=== PATIENT | male | born 1940 | race Caucasian/White ===

== ENCOUNTER 2017-07-22 06:24 | Inpatient (IN) | payer MEDICARE ==
[~2017-07-22] VITALS: Ht 182.9 cm; Wt 90.7 kg
[2017-07-22] VITALS (8 sets, daily range): BP systolic 104–198; BP diastolic 55–85
[~2017-07-22 06:24] MED LIST: ASPIRIN EC81 M1 PO; ATIVAN1 MG PO; AUGMENTIN 875875 MG PO; AVELOX 400 MG400 M1 PO; AVELOX 400 MG400 MG PO; B-12500 MC1 PO; COLACE100 MG PO; DUONEB 2.5-0.5 M3 ML INH; FOLIC ACID 1 MG1 MG PO; GLIPIZIDE ER10 MG PO; GLYBURIDE 2.52.5 M1 PO; HYTRIN 1 MG CAP1 MG PO; LOPRESSOR 50 MG50 M1 PO; LOPRESSOR25 PO; LOSARTAN POTASS25 MG PO; MIRALAX255 GM PO; MUCINEX TA600 MG/TA1 PO; OMEPRAZOLE40 MG PO; PRAVACHOL80 MG PO; PREDNISONE 10 M10 M1; PREDNISONE 10 M10 M1 PO; PREDNISONE 10 M10 MG PO; ZOLOFT 50 MG TA50 M1 PO
[2017-07-22] MEDS ORDERED: AZITHROMYCIN 2250 MG PO (06:27)
[2017-07-22] MEDS ORDERED: VITAMIN D1000 UNI1 PO (06:27)
[2017-07-22] MEDS ORDERED: TUMS PO (06:27)
[2017-07-22] MEDS ORDERED: FLOVENT HFA 4444 MCG INH (06:28)
[2017-07-22] MEDS ORDERED: FERROUS GLUCON324 M2 PO (06:28)
[2017-07-22] MEDS ORDERED: LEVALBUTER1.25 MG/0. INH (06:29)
[2017-07-22] MEDS ORDERED: CLARITIN10 MG PO (06:29)
[2017-07-22] MEDS ORDERED: LASIX 40 MG TAB40 M2 PO (06:29)
[2017-07-22] MEDS ORDERED: ONGLYZA2.5 MG PO (06:30)
[2017-07-22] MEDS ORDERED: COZAAR 25 MG TA25 M1 PO (06:31)
[2017-07-22] MEDS ORDERED: PULMICORT0.5 MG/22 INH (06:31)
[2017-07-22 07:07] LABS: HEMATOCRIT 23.6 % (42.0-52.0); HEMOGLOBIN 7.5 gm/dL (14.0-18.0); MCHC 31.7 g/dL (28.0-37.0); MCV 88.4 fL (80.0-100.0); MPV 8.8 fl. (7.2-11.1); NUCLEATED RBCS 0 /100WBC; PLATELET COUNT* 93 thou/uL (150-400); RBC 2.67 mil/uL (4.50-6.00); RDW-CV 14.7 % (10.5-14.5); WBC 8.3 thou/uL (4.0-11.0)
[2017-07-22 07:27] LABS: ALBUMIN 1.3 g/dL (3.4-5.0); ALKALINE PHOSPHATASE 33 U/L (46-116); APTT 41.8 Seconds (25.0-31.3); BUN 14 mg/dL (7-18); CHLORIDE 121 mmol/L (98-107); CREATININE 0.5 mg/dL (0.6-1.3); GLUCOSE 200 mg/dL (70-99); INR 1.5; NT-PRO BRAIN NAT PEPTIDE 91 pg/mL (<300); PROTIME 14.6 Seconds (9.20-11.50); SGOT 7 U/L (15-37); SGPT 6 U/L (30-65); SODIUM 150 mmol/L (136-145); TOTAL BILIRUBIN 0.4 mg/dL (<0.1-1.0); TOTAL PROTEIN 2.9 g/dL (6.4-8.2); TROPONIN-I LEVEL <0.06 ng/mL (<0.06)
[2017-07-22 07:34] LABS: ANION GAP 8 mmol/L (7-16); CO2 21 mmol/L (21-32)
[2017-07-22 07:36] LABS: CALCIUM < 5.0 mg/dL (8.5-10.1)
[2017-07-22 07:39] LABS: URINE BILIRUBIN NEGATIVE (Negative); URINE BLOOD 3+ (Negative); URINE CLARITY CLEAR; URINE COLOR YELLOW; URINE GLUCOSE-RANDOM 2+ (Negative); URINE KETONES TRACE (Negative); URINE LEUKOCYTES-REFLEX NEGATIVE (Negative); URINE NITRITE-REFLEX NEGATIVE (Negative); URINE PROTEIN 2+ (Negative); URINE SPECIFIC GRAVITY 1.025 (1.005-1.030); URINE UROBILINOGEN 0.2 E.U./dl (0.2-1.0)
[2017-07-22 07:40] LABS: ABSOLUTE EOSINOPHILS 0.1 thou/uL (0.0-0.7); ABSOLUTE LYMPHOCYTES 0.5 thou/uL (0.8-5.3); ABSOLUTE MONOCYTES 0.2 thou/uL (0.0-1.2); ABSOLUTE NEUTROPHILS 7.6 thou/uL (1.6-8.1); PLATELET ESTIMATE DECREASED
[2017-07-22 07:41] LABS: ANISOCYTOSIS 1+; POIKILOCYTOSIS 1+
[2017-07-22 07:56] LABS: SQUAMOUS 0-3 Few /LPF (0-3); URINE WBC-REFLEX 0-5 Rare /HPF (0-5)
[2017-07-22 07:57] LABS: BACTERIA-REFLEX 1-9 Few /HPF (None Seen); CRYSTALS None Seen /LPF (None Seen); FINE GRANULAR CASTS 0-3 Few /LPF (None Seen); HYALINE CASTS 4-10 Moderate /LPF (None Seen); MUCUS 0-3 Light strn/LPF (None Seen)
[2017-07-22 10:22] LABS: BE 5.5 mmol/L (-2 to +3); HCO3 33.3 mmol/L (22.0-26.0); pH 7.333 (7.340-7.450)
[2017-07-22 10:23] LABS: PCO2 64.1 mmHg (35.0-45.0); PO2 127.2 mmHg (75.0-100.0)
--- NOTE | 2017-07-22 10:30 | EKG ---
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 : 1940 Requested By: Carlton Sanchez Order Number: [id number] MD: Steven Sousa Measurements Intervals [place] Rate: 114 P: 71 NM: 145 QRS: 53 QRSD: 84 T: 78 QT: 357 QTc: 492 Interpretive Statements Sinus tachycardia Artifact v1-v3 Borderline prolonged QT interval Compared to ECG 01/01/2017 23:18:25 Artifact noted Electronically Signed On 07-22-2017 10:30:33 ELEMENTARY SCHOOL ART TEACHER by Steven Sousa [email or web address] <ELECTRONICALLY SIGNED> By: Steven Sousa MD, [facility] 07/22/17 1030 [id number] [id number] Steven Sousa MD, [facility] /EPI
[2017-07-22 14:12] LABS: MAGNESIUM 1.6 mg/dL (1.8-2.4); PHOSPHORUS* 1.4 mg/dL (2.5-4.9)
[2017-07-22 14:46] LABS: CALCIUM 6.4 mg/dL (8.5-10.1); CREATININE 1.1 mg/dL (0.6-1.3)
[2017-07-22 14:50] LABS: POTASSIUM 5.1 mmol/L (3.5-5.1)
[2017-07-22 16:19] LABS: BE 5.4 mmol/L (-2 to +3); HCO3 31.5 mmol/L (22.0-26.0); PO2 62.3 mmHg (75.0-100.0); pH 7.396 (7.340-7.450)
[2017-07-22 16:20] LABS: PCO2 52.5 mmHg (35.0-45.0)
[2017-07-22 20:04] LABS: MAGNESIUM 2.7 mg/dL (1.8-2.4); PHOSPHORUS* 1.7 mg/dL (2.5-4.9)
[2017-07-23] VITALS (18 sets, daily range): BP systolic 103–163; BP diastolic 55–86
[2017-07-23 06:32] LABS: ABSOLUTE LYMPHOCYTES 0.7 thou/uL (0.8-5.3); ABSOLUTE MONOCYTES 0.6 thou/uL (0.0-1.2); ABSOLUTE NEUTROPHILS 9.9 thou/uL (1.6-8.1); BASOPHILS 0.2 %; HEMATOCRIT 32.7 % (42.0-52.0); LYMPHOCYTES 6.6 %; MCHC 32.7 g/dL (28.0-37.0); MCV 85.8 fL (80.0-100.0); MONOCYTES 5.1 %; MPV 9.7 fl. (7.2-11.1); NUCLEATED RBCS 0 /100WBC; PLATELET COUNT* 116 thou/uL (150-400); POLYS 88.1 %; RBC 3.81 mil/uL (4.50-6.00); RDW-CV 14.3 % (10.5-14.5); WBC 11.2 thou/uL (4.0-11.0)
[2017-07-23 06:37] LABS: CALCIUM 7.7 mg/dL (8.5-10.1); MAGNESIUM 2.3 mg/dL (1.8-2.4); POTASSIUM 3.2 mmol/L (3.5-5.1)
[2017-07-23 06:39] LABS: HEMOGLOBIN 10.7 gm/dL (14.0-18.0)
[2017-07-23 06:39] LABS: BE 7.8 mmol/L (-2 to +3); HCO3 33.5 mmol/L (22.0-26.0); PO2 86.9 mmHg (75.0-100.0); pH 7.425 (7.340-7.450)
[2017-07-23 06:41] LABS: PCO2 52.2 mmHg (35.0-45.0)
[2017-07-23 13:41] LABS: PHOSPHORUS* 2.4 mg/dL (2.5-4.9); POTASSIUM 3.7 mmol/L (3.5-5.1)
[2017-07-24] VITALS (19 sets, daily range): BP systolic 104–141; BP diastolic 38–67
[2017-07-24 04:09] LABS: ABSOLUTE LYMPHOCYTES 0.5 thou/uL (0.8-5.3); ABSOLUTE MONOCYTES 0.8 thou/uL (0.0-1.2); ABSOLUTE NEUTROPHILS 11.4 thou/uL (1.6-8.1); BASOPHILS 0.1 %; HEMATOCRIT 31.1 % (42.0-52.0); HEMOGLOBIN 10.2 gm/dL (14.0-18.0); LYMPHOCYTES 3.8 %; MCHC 32.7 g/dL (28.0-37.0); MCV 85.5 fL (80.0-100.0); MONOCYTES 6.6 %; MPV 9.4 fl. (7.2-11.1); NUCLEATED RBCS 0 /100WBC; PLATELET COUNT* 124 thou/uL (150-400); POLYS 89.5 %; RBC 3.64 mil/uL (4.50-6.00); RDW-CV 14.6 % (10.5-14.5); WBC 12.8 thou/uL (4.0-11.0)
[2017-07-24 04:23] LABS: ALBUMIN 2.9 g/dL (3.4-5.0); CALCIUM 7.5 mg/dL (8.5-10.1); CREATININE 0.9 mg/dL (0.6-1.3); MAGNESIUM 2.2 mg/dL (1.8-2.4); POTASSIUM 3.9 mmol/L (3.5-5.1); TOTAL BILIRUBIN 0.5 mg/dL (<0.1-1.0); TOTAL PROTEIN 5.4 g/dL (6.4-8.2)
[2017-07-24 04:36] LABS: PHOSPHORUS* 3.6 mg/dL (2.5-4.9)
[2017-07-24 11:23] LABS: BE 3.1 mmol/L (-2 to +3); HCO3 29.1 mmol/L (22.0-26.0); PCO2 50.7 mmHg (35.0-45.0); PO2 84.9 mmHg (75.0-100.0); pH 7.377 (7.340-7.450)
--- NOTE | 2017-07-24 12:42 | CON ---
[address] [address] CONSULTATION Name: ABDIAS PALUMBO Room: [address] IN M.R.#: [id number] Admission: 07/22/17 Attend Phys: Kavitha Arenas Discharge: Date of : 38 Report #: [id number] THIS REPORT FOR: //name// CC: FAM unknown Yina Crouch DATE OF SERVICE: 07/23/2017 ATTENDING PHYSICIAN: Yina Crouch M.D. REASON FOR EVALUATION: Pneumonitis, complicated by respiratory failure. HISTORY OF PRESENT ILLNESS: Chart reviewed, patient examined. This is a 77-year-old with COPD, O2 requiring presumptive 5-6 liters per nasal cannula at home, also has diabetes mellitus, hypertension, posttraumatic stress disorder who had progressive shortness of breath over the last couple of days prior to admission, he was evaluated in the ER, and it was confirmed that he did have a recent fall, noted to be hypoxemic and was emergently intubated and now is on the vent, later with a chronic ventilatory support. He has had some low-grade temperature elevations. Empirically started on antimicrobials specifically vancomycin, levofloxacin and most recent x-ray did show some improvement over the patchy bibasilar infiltrates. ALLERGIES: None known. MEDICATIONS: Include levofloxacin, pantoprazole, insulin, vancomycin, methylprednisolone, p.r.n. analgesics. PAST MEDICAL HISTORY: As described above, also history of appendectomy and previous aneurysm. SOCIAL HISTORY: Former smoker, although smoked for several years, greater than 50 pack years. No ethanol. FAMILY HISTORY: Noncontributory. REVIEW OF SYSTEMS: Not obtainable. PHYSICAL EXAMINATION: GENERAL: He appears chronically ill. He is supine, intubated, sedated, appears undernourished. VITAL SIGNS: Temperature 98.1, pulse 98, respirations 16, blood pressure 120/63. SKIN: Warm, multiple contused areas on the upper extremities and thinning of the skin loss of subcutaneous tissue, suspect secondary to chronic vaginal [place] [address] CONSULTATION Name: ABDIAS PALUMBO Room: [address] IN [facility].#: [id number] Admission: 07/22/17 Attend Phys: Kavitha Arenas Discharge: Date of : 38 Report #: [id number] LUNGS: Diminished scattered coarse breath sounds. HEART: Regular. Borderline tachycardic. May have a soft systolic murmur. ABDOMEN: Soft, no apparent peritoneal signs. GENITOURINARY AND RECTAL: Deferred. LABORATORY DATA: Recent CBC: White count of 11.2, H and H 10.7 and 32.7, platelets of 116. ABGs: pH 7.425, pCO2 of 52.2, pO2 of 86.9, FiO2 of 45%. Electrolytes: Sodium 144, potassium 3.2, chloride 105, bicarbonate is 35, anion gap of 4, BUN and creatinine 30 and 1.0, estimated GFR of 72. Chest x-ray: Patchy bibasilar infiltrates, possible pneumonitis. ASSESSMENT: Some pneumonitis complicated by respiratory failure. The patient has got a very marginal lung function at this point. We will continue combination therapy. Await culture results, suspect may be difficult to wean. Overall, his prognosis appears quite guarded. <ELECTRONICALLY SIGNED> By: Jan Barton MD 07/24/17 1242 1046 [id number] Barton MD /nt
[2017-07-25] VITALS (24 sets, daily range): BP systolic 102–194; BP diastolic 43–106
[2017-07-25 04:02] LABS: HEMATOCRIT 32.7 % (42.0-52.0); HEMOGLOBIN 10.5 gm/dL (14.0-18.0); MCH 27.6 pg (26.0-34.0); MCV 86.3 fL (80.0-100.0); MPV 9.4 fl. (7.2-11.1); NUCLEATED RBCS 0 /100WBC; PLATELET COUNT* 130 thou/uL (150-400); RBC 3.79 mil/uL (4.50-6.00); RDW-CV 14.8 % (10.5-14.5); WBC 10.2 thou/uL (4.0-11.0)
[2017-07-25 04:19] LABS: ALBUMIN 2.9 g/dL (3.4-5.0); CALCIUM 7.5 mg/dL (8.5-10.1); CREATININE 0.9 mg/dL (0.6-1.3); MAGNESIUM 2.2 mg/dL (1.8-2.4); POTASSIUM 4.4 mmol/L (3.5-5.1); TOTAL BILIRUBIN 0.5 mg/dL (<0.1-1.0); TOTAL PROTEIN 5.7 g/dL (6.4-8.2)
[2017-07-25 05:25] LABS: ABSOLUTE LYMPHOCYTES 0.4 thou/uL (0.8-5.3); ABSOLUTE MONOCYTES 0.5 thou/uL (0.0-1.2); ABSOLUTE NEUTROPHILS 9.3 thou/uL (1.6-8.1); ANISOCYTOSIS 1+; PLATELET ESTIMATE DECREASED; POIKILOCYTOSIS 1+
[2017-07-25 09:37] LABS: BE 3.8 mmol/L (-2 to +3); PCO2 52.9 mmHg (35.0-45.0); PO2 91.1 mmHg (75.0-100.0); pH 7.372 (7.340-7.450)
--- NOTE | 2017-07-25 15:09 | 2DMMODE ---
[place] [address] 2 D/M-MODE ECHOCARDIOGRAM Name: ABDIAS PALUMBO Room: [address] ADM IN [facility]#: [id number] Admission: 07/22/17 Attend Phys: Yina Crouch Discharge: Date of : 38 Date of Service: 07/25/17 1508 Report #: [id number] THIS REPORT FOR: //name// APPROVED REPORT Study performed: 07/25/2017 10:40:33 EXAM: Comprehensive 2D, Doppler, and color-flow Echocardiogram Patient Location: In-Patient Room #: 006 Status: routine BSA: 2.14 HR: 82 bpm BP: 162/85 mmHg Rhythm: NSR Other Information Technically limited study due to subcostal only view available. Indications Dyspnea 2D Dimensions LVEF(%): 42.46 (>50%) IVSd: 9.24 (7-11mm) LVOT Diam: 19.54 (18-24mm) LVDd: 49.16 mm PWd: 7.38 (7-11mm) LVDs: 38.88 (25-40mm) Aortic Root: 31.66 mm Cedeno's LVEF: 42.46 % Volumes Left Atrial Volume (Systole) LA ESV Index: 28.40 mL/m2 Aortic Valve AoV Peak Estrada.: 1.30 m/s AO Peak Gr.: 6.71 mmHg LVOT Max P.79 mmHg AO Mean Gr.: 3.73 mmHg LVOT Mean P.78 mmHg LVOT Max V: 0.97 m/s AO V2 VTI: 28.54 cm LVOT Mean V: 0.61 m/s RILEY (VTI): 2.16 cm2 LVOT V1 VTI: 20.60 [place] [address] 2 D/M-MODE ECHOCARDIOGRAM Name: ABDIAS PALUMBO Room: [address] IN ..#: [id number] Admission: 07/22/17 Attend Phys: Yina Crouch Discharge: Date of : 38 Date of Service: 07/25/17 1508 Report #: [id number] E/A Ratio: 0.83 MV Decel. Time: 190.68 ms MV E Max Estrada.: 0.93 m/s MV PHT: 55.30 ms MVA (PHT): 3.98 cm2 TDI E/Lateral E': 8.45 E/Medial E': 13.29 Medial E' Estrada.: 0.07 m/s Lateral E' Estrada.: 0.11 m/s Pulmonary Valve PV Peak Estrada.: 1.02 m/s PV Peak Gr.: 4.19 mmHg Tricuspid Valve TR Peak Gr.: 32.44 mmHg RVSP: 37.00 mmHg Left Ventricle The left ventricle is normal size. There is normal LV segmental wall motion. There is normal left ventricular wall thickness. Left ventricular systolic function is normal. The left ventricular ejection fraction is within the normal range. LVEF is 55-60%. Grade I - abnormal relaxation pattern. Right Ventricle The right ventricle is normal size. The right ventricular systolic function is normal. Atria Left atrium is mildly dilated. The right atrium size is normal. Aortic Valve The aortic valve is normal in structure. No aortic regurgitation is present. There is no aortic valvular stenosis. Mitral Valve The mitral valve is normal in structure. Trace mitral regurgitation. No evidence of mitral valve stenosis. Tricuspid Valve The tricuspid valve is normal in structure. Trace tricuspid regurgitation. The RVSP is 35-40 mmHg. Pulmonic Valve The pulmonary valve is normal in structure. [place] [address] 2 D/M-MODE ECHOCARDIOGRAM Name: ABDIAS PALUMBO Room: [address]#: [id number] Admission: 07/22/17 Attend Phys: Yina Crouch Discharge: Date of : 38 Date of Service: 07/25/17 1508 Report #: [id number] valvular regurgitation. Great Vessels The aortic root is normal in size. IVC is normal in size and collapses with >50% inspiration Pericardium There is no pericardial effusion. <Conclusion> LVEF is 55-60%. There is normal LV segmental wall motion. Grade I - abnormal relaxation pattern. Left atrium is mildly dilated. There is no aortic valvular stenosis. No aortic regurgitation is present. Trace mitral regurgitation. Trace tricuspid regurgitation. The RVSP is 35-40 mmHg. The right ventricular systolic function is normal. <ELECTRONICALLY SIGNED> By: Nikolay Gomez MD, FACC 07/25/17 1508 1508 1508 Nikolay Gomez MD, FACC /INF
[2017-07-25 23:07] LABS: ADENOVIRUS Negative (Negative); INFLUENZA A Negative (Negative); INFLUENZA B Negative (Negative); METAPNEUMOVIRUS Negative (Negative); PARAINFLUENZA 1 Negative (Negative); PARAINFLUENZA 2 Negative (Negative); PARAINFLUENZA 3 Negative (Negative); RHINOVIRUS Negative (Negative); RSV A Negative (Negative); RSV B Negative (Negative)
[2017-07-26] VITALS (11 sets, daily range): BP systolic 135–183; BP diastolic 64–97
--- NOTE | 2017-07-26 07:42 | CON ---
[address] [address] CONSULTATION Name: ABDIAS PALUMBO Room: [address] IN M.R.#: [id number] Admission: 07/22/17 Attend Phys: Kavitha Arenas Discharge: Date of : 38 Report #: [id number] THIS REPORT FOR: //name// CC: FAM unknown [facility] Yina Crouch MD DATE OF SERVICE: 07/22/2017 ATTENDING PHYSICIAN: Dr. Yina Crouch. LOCATION: The patient is located in the ICU bed 6. INDICATION FOR CONSULTATION: Acute respiratory failure, COPD, right lower lobe pneumonia. CLINICAL SUMMARY: The patient is a 77-year-old male, prior smoker, who normally gets his care at the [facility]. He has had at least a 2-3 day history of cough and shortness of breath. By history, he lives by himself, but a neighbor noticed that he was not doing well. He was seen at the [facility] yesterday, not certain whether he was given antibiotics and/or prednisone taper, the last date of service was 07/21 and Zithromax was on the list. The patient summoned ENT this morning, was on 100% nonrebreather and brought into the Emergency Room around 6:00 a.m. He was in dire respiratory distress. His O2 sats were low and Dr. Sanchez made the decision to go ahead and emergently intubate the patient's. His white count was only minimally elevated. He had a CT angio of his chest, which showed right lower lobe versus left lower lobe pneumonia, COPD and hyperinflation. He was then transferred over to the intensive care unit. Blood gases are pending at time of dictation. PAST MEDICAL HISTORY: Again, he has had a history of anemia, had a history of diabetes mellitus type 2, COPD. I do not know whether he is oxygen dependent. It does not appear he was steroid-dependent at least at this time. ALLERGIES: He has no known medical allergies at least on his list. MEDICATIONS: Medications as an outpatient were multiple including levalbuterol, Xopenex aerosol treatments 0.65 mg t.i.d., was on Spiriva inhaled 1 puff daily and also on furosemide 40 mg daily, pravastatin was 20 mg daily, losartan was 25 mg daily. He was on Symbicort also 160/4.5 one puff b.i.d., Accu-Cheks q.i.d., glipizide dose was 10 mg twice daily, ferrous gluconate was 324 mg daily, azithromycin was 250 mg tablet Z-JOSE. While he is in the hospital, he has received DuoNeb treatments and also IV Solu-Medrol. Antibiotics were pending. FAMILY HISTORY: Not noted. He lives by himself, [place] [address] CONSULTATION Name: ABDIAS PALUMBO Room: [address]#: [id number] Admission: 07/22/17 Attend Phys: Kavitha Arenas Discharge: Date of : 39 Report #: [id number] previous cardiopulmonary disease. SOCIAL HISTORY: He is a prior smoker, not certain if he is still smoking. Lives by himself. Alcohol and drug use is not noted. REVIEW OF SYSTEMS: A 14-point review of systems not able to be obtained. PHYSICAL EXAMINATION: GENERAL: This is a 77-year-old male previously in moderate distress. He is currently intubated. VITAL SIGNS: Blood pressure without pressors was 130/70, his heart rate was 100, respirations were 16 over a backup rate of 16, temperature was 99.8 degrees. I do not have a height or weight on him yet. HEENT: Pupils are midpoint and reactive. He is orally intubated. NECK: Supple without nodes. CHEST: Shows diminished breath sounds, prolonged expiratory phase, few wheezes and rhonchi noted. Appears somewhat hyperinflated. CARDIOVASCULAR: Sinus tachycardia without murmur, gallop or rub. ABDOMEN: He has a right lower quadrant incision with what appears to be lateral abdominal wall hernia, somewhat of an outpouching in his right lower quadrant. No definite mass or tumor, could be a lipoma underneath there. No other hepatosplenomegaly is noted. EXTREMITIES: Otherwise without cyanosis, clubbing or edema. NEUROLOGIC: He was moving all fours and responsive when he was in. He has been sedated and I believe had some vecuronium, so he is not moving at least at this time. LABORATORY DATA: Hemoglobin was low at 7.5 and white count was 14,000. Chem panel was pending. ABGs are pending. Again, CT angio of the chest shows right lower lobe versus left lower lobe pneumonia with infiltrates. He has COPD, hyperinflation. He also has blebs in the upper and lower lobes, pulmonary arteries appear minimally enlarged. He is hyperinflated. No definite mass or tumor. ET tube appears to be in good position. IMPRESSION: 1. Community-acquired pneumonia. 2. Moderately [id number] chronic obstructive pulmonary disease. 3. Acute respiratory failure. 4. Diabetes mellitus. 5. Anemia, etiology unknown. PLAN: We will continue with antibiotics, steroids, nebulizer treatments. We will see what his ABG show, give him a couple days to resolve and see if he can respond and recover. We will check a flu panel and probably get serology, a respiratory viral panel and make certain what other etiologies as well as the sputum [place] [address] CONSULTATION Name: ABDIAS PALUMBO Room: [address] IN [facility]#: [id number] Admission: 07/22/17 Attend Phys: Kavitha Arenas Discharge: Date of : 38 Report #: [id number] This has been a 35-minute critical care consult. <ELECTRONICALLY SIGNED> By: Ambika Chou MD 07/26/17 0742 0931 1053Aradha Armstrong MD /ally
[2017-07-26 12:18] LABS: ABSOLUTE LYMPHOCYTES 0.7 thou/uL (0.8-5.3); ABSOLUTE MONOCYTES 1.5 thou/uL (0.0-1.2); BASOPHILS 0.3 %; EOSINOPHILS 0.1 %; HEMATOCRIT 39.5 % (42.0-52.0); HEMOGLOBIN 12.8 gm/dL (14.0-18.0); MCH 27.7 pg (26.0-34.0); MCHC 32.3 g/dL (28.0-37.0); MCV 85.6 fL (80.0-100.0); MONOCYTES 10.6 %; MPV 8.4 fl. (7.2-11.1); NUCLEATED RBCS 0 /100WBC; PLATELET COUNT* 171 thou/uL (150-400); RBC 4.61 mil/uL (4.50-6.00); RDW-CV 14.9 % (10.5-14.5); WBC 14.3 thou/uL (4.0-11.0)
[2017-07-26 12:26] LABS: CALCIUM 8.1 mg/dL (8.5-10.1); CREATININE 0.9 mg/dL (0.6-1.3); MAGNESIUM 2.5 mg/dL (1.8-2.4); POTASSIUM 4.5 mmol/L (3.5-5.1)
[2017-07-27] VITALS: BP 143/82
[2017-07-27 05:44] LABS: HEMATOCRIT 38.1 % (42.0-52.0); HEMOGLOBIN 12.4 gm/dL (14.0-18.0); MCH 27.9 pg (26.0-34.0); MCHC 32.5 g/dL (28.0-37.0); MCV 85.8 fL (80.0-100.0); MPV 8.6 fl. (7.2-11.1); RBC 4.44 mil/uL (4.50-6.00); RDW-CV 14.9 % (10.5-14.5); WBC 9.7 thou/uL (4.0-11.0)
[2017-07-27 05:59] LABS: CALCIUM 8.1 mg/dL (8.5-10.1); CREATININE 0.9 mg/dL (0.6-1.3); POTASSIUM 5.1 mmol/L (3.5-5.1)
[2017-07-27 08:25] VITALS: BP 158/88
[2017-07-27 15:00] VITALS: BP 174/61
[2017-07-27 20:40] VITALS: BP 124/69
[2017-07-28 04:17] LABS: ABSOLUTE BASOPHILS 0.1 thou/uL (0.0-0.2); ABSOLUTE LYMPHOCYTES 0.6 thou/uL (0.8-5.3); ABSOLUTE MONOCYTES 0.9 thou/uL (0.0-1.2); BASOPHILS 0.4 %; EOSINOPHILS 0.1 %; HEMATOCRIT 37.7 % (42.0-52.0); HEMOGLOBIN 12.4 gm/dL (14.0-18.0); LYMPHOCYTES 4.8 %; MCH 27.9 pg (26.0-34.0); MCHC 32.8 g/dL (28.0-37.0); MONOCYTES 7.1 %; MPV 9.1 fl. (7.2-11.1); NUCLEATED RBCS 0 /100WBC; PLATELET COUNT* 141 thou/uL (150-400); POLYS 87.6 %; RBC 4.44 mil/uL (4.50-6.00); RDW-CV 14.6 % (10.5-14.5); WBC 12.6 thou/uL (4.0-11.0)
[2017-07-28 04:41] LABS: ALBUMIN 3.1 g/dL (3.4-5.0); CALCIUM 7.9 mg/dL (8.5-10.1); CREATININE 0.9 mg/dL (0.6-1.3); MAGNESIUM 2.2 mg/dL (1.8-2.4); POTASSIUM 4.5 mmol/L (3.5-5.1); TOTAL PROTEIN 5.8 g/dL (6.4-8.2)
[2017-07-28 08:16] VITALS: BP 162/90
[2017-07-28 16:15] VITALS: BP 147/79
[2017-07-28 20:00] VITALS: BP 163/74
[2017-07-29 09:45] VITALS: BP 126/60
[2017-07-29 16:00] VITALS: BP 158/87
[2017-07-29 20:48] VITALS: BP 146/81
[2017-07-30] VITALS: BP 149/77
[2017-07-30 04:00] VITALS: BP 148/75
[2017-07-30 09:15] VITALS: BP 136/68
[2017-07-30 17:47] VITALS: BP 142/75
[2017-07-30 19:30] VITALS: BP 109/57
[2017-07-31 00:18] VITALS: BP 100/76
[2017-07-31 03:52] VITALS: BP 154/61
[2017-07-31 05:14] LABS: HEMATOCRIT 39.8 % (42.0-52.0); MCH 27.8 pg (26.0-34.0); MCHC 32.5 g/dL (28.0-37.0); MCV 85.3 fL (80.0-100.0); NUCLEATED RBCS 0 /100WBC; PLATELET COUNT* 127 thou/uL (150-400); RBC 4.67 mil/uL (4.50-6.00); RDW-CV 14.6 % (10.5-14.5); WBC 10.2 thou/uL (4.0-11.0)
[2017-07-31 05:52] LABS: ALBUMIN 3.2 g/dL (3.4-5.0); CALCIUM 8.3 mg/dL (8.5-10.1); CREATININE 0.9 mg/dL (0.6-1.3); POTASSIUM 4.2 mmol/L (3.5-5.1); TOTAL BILIRUBIN 1.1 mg/dL (<0.1-1.0); TOTAL PROTEIN 5.8 g/dL (6.4-8.2)
[2017-07-31 06:40] LABS: ABSOLUTE LYMPHOCYTES 0.6 thou/uL (0.8-5.3); ABSOLUTE MONOCYTES 0.5 thou/uL (0.0-1.2); ABSOLUTE NEUTROPHILS 9.1 thou/uL (1.6-8.1); METAMYELOCYTES 1 %; PLATELET ESTIMATE DECREASED
[2017-07-31 08:05] VITALS: BP 105/58
[2017-07-31 12:00] VITALS: BP 128/88
[2017-07-31 12:59] VITALS: BP 128/88
[2017-07-31] MEDS ORDERED: LEVAQUIN 750 M750 MG PO (13:46)
[2017-07-31] MEDS ORDERED: NYSTATIN 100,0015 G1 TOP (13:47)
[2017-07-31] MEDS ORDERED: HUMALOG100 UNIT/1 SUBQ (13:50)
[2017-07-31] MEDS ORDERED: PREDNISONE 10 M10 MG PO (13:52)
--- NOTE | 2017-07-31 14:30 | EKG ---
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 : 1940 Requested By: Dio Bear Order Number: [id number] Jamal MD: Jeffrey Morales Measurements Intervals [place] Rate: 113 P: 59 WI: 127 QRS: 45 QRSD: 94 T: 62 QT: 362 QTc: 497 Interpretive Statements Sinus tachycardia Atrial premature complex Minimal ST depression, diffuse leads Borderline prolonged QT interval Baseline wander in lead(s) I,II,aVR,aVF Compared to ECG 07/22/2017 06:54:51 Atrial premature complex(es) now present ST (T wave) deviation now present Electronically Signed On 07-31-2017 14:30:29 CLINICAL EDUCATION SPECIALIST by Jeffrey Morales [email or web address] <ELECTRONICALLY SIGNED> By: Jeffrey Morales MD, FAC 07/31/17 1430 21 21 Jeffrey Morales MD, FAC /EPI
[2017-07-31] MEDS ORDERED: GLIPIZIDE 10 MG10 MG PO (21:44)
[2017-07-31] MEDS ORDERED: AZITHROMYCIN 2250 MG (21:45)
[2017-07-31] MEDS ORDERED: ONGLYZA2.5 MG PO (21:45)
== END 2017-07-31 15:31 | DRG 871 ==
LOC: M.ERS 06:24 → M.ICU 07:05 → M.TBA-ER 07:05 → M.ICU 07:45 → M.3W 07-26 16:26
PROVIDERS: Emergency Medicine Emergency Medical Services; Family Medicine; Internal Medicine; Internal Medicine Critical Care Medicine; Internal Medicine Pulmonary Disease; ADMIT Internal Medicine
DX: A41.9 Sepsis, unspecified organism (principal); E43 Unspecified severe protein-calorie malnutrition; J15.9 Unspecified bacterial pneumonia; J96.21 Acute and chronic respiratory failure with hypoxia; J96.22 Acute and chronic respiratory failure with hypercapnia; J44.1 Chronic obstructive pulmonary disease with (acute) exacerbation; E87.0 Hyperosmolality and hypernatremia; J44.0 Chronic obstructive pulmonary disease with (acute) lower respiratory infection; I27.81 Cor pulmonale (chronic); D69.6 Thrombocytopenia, unspecified; D64.9 Anemia, unspecified; R65.20 Severe sepsis without septic shock; E11.9 Type 2 diabetes mellitus without complications; I10 Essential (primary) hypertension; F43.10 Post-traumatic stress disorder, unspecified; Z90.49 Acquired absence of other specified parts of digestive tract; Z87.891 Personal history of nicotine dependence; Z82.49 Family history of ischemic heart disease and other diseases of the circulatory system; Z68.27 Body mass index [BMI] 27.0-27.9, adult; Z99.81 Dependence on supplemental oxygen; Z79.82 Long term (current) use of aspirin

== ENCOUNTER 2017-07-31 20:43 | Inpatient (IN) | payer MEDICARE ==
[~2017-07-31] VITALS: Ht 180.3 cm; Wt 86.6 kg
[~2017-07-31 20:43] MED LIST changes: +AZITHROMYCIN 2250 MG PO; +CLARITIN10 MG PO; +COZAAR 25 MG TA25 M1 PO; +FERROUS GLUCON324 M2 PO; +FLOVENT HFA 4444 MCG INH; +HUMALOG100 UNIT/1 SUBQ; +LASIX 40 MG TAB40 M2 PO; +LEVALBUTER1.25 MG/0. INH; +LEVAQUIN 750 M750 MG PO; +NYSTATIN 100,0015 G1 TOP; +ONGLYZA2.5 MG PO; +PULMICORT0.5 MG/22 INH; +TUMS PO; +VITAMIN D1000 UNI1 PO
[2017-07-31 20:44] VITALS: BP 114/62
[2017-07-31 21:14] LABS: HEMATOCRIT 40.1 % (42.0-52.0); MCH 27.7 pg (26.0-34.0); MCHC 32.3 g/dL (28.0-37.0); MCV 85.6 fL (80.0-100.0); MPV 8.7 fl. (7.2-11.1); NUCLEATED RBCS 0 /100WBC; PLATELET COUNT* 147 thou/uL (150-400); RBC 4.69 mil/uL (4.50-6.00); RDW-CV 14.4 % (10.5-14.5); WBC 13.6 thou/uL (4.0-11.0)
[2017-07-31 21:22] LABS: ANION GAP 0 mmol/L (7-16); BUN 40 mg/dL (7-18); CALCIUM 8.9 mg/dL (8.5-10.1); CHLORIDE 96 mmol/L (98-107); CO2 43 mmol/L (21-32); GLUCOSE 281 mg/dL (70-99); SODIUM 139 mmol/L (136-145)
[2017-07-31 21:34] LABS: NT-PRO BRAIN NAT PEPTIDE 367 pg/mL (<300); TROPONIN-I LEVEL <0.06 ng/mL (<0.06)
[2017-07-31] MEDS ORDERED: GLIPIZIDE 10 MG10 MG PO (21:44)
[2017-07-31] MEDS ORDERED: ONGLYZA2.5 MG PO (21:45)
[2017-07-31] MEDS ORDERED: AZITHROMYCIN 2250 MG (21:45)
[2017-07-31 21:47] LABS: ABSOLUTE LYMPHOCYTES 0.8 thou/uL (0.8-5.3); ABSOLUTE NEUTROPHILS 10.7 thou/uL (1.6-8.1)
[2017-07-31 21:48] LABS: PLATELET ESTIMATE ADEQUATE
[2017-07-31 23:46] LABS: BE 13.7 mmol/L (-2 to +3); pH 7.315 (7.340-7.450)
[2017-07-31 23:47] LABS: HCO3 43.9 mmol/L (22.0-26.0); PCO2 88.2 mmHg (35.0-45.0); PO2 129.6 mmHg (75.0-100.0)
[2017-08-01] VITALS (7 sets, daily range): BP systolic 95–152; BP diastolic 53–79
[2017-08-01 00:52] LABS: BE 13.1 mmol/L (-2 to +3); pH 7.343 (7.340-7.450)
[2017-08-01 00:53] LABS: PCO2 79.9 mmHg (35.0-45.0)
[2017-08-01 00:54] LABS: HCO3 42.4 mmol/L (22.0-26.0); PO2 125.6 mmHg (75.0-100.0)
--- NOTE | 2017-08-01 02:32 | NUR ---
RESTING IN BED. ON CPAP. ADMITTED TO FLOOR. WAS DISCHARGE FROM THIS HOSPITAL EARLY YESTERDA7 AND RETURNED DUE TO REQUIRING CPAP. ALERT AND ORIENTED. ASKED FOR URNIAL. BED IN LOW POSITION, ALARM ON. WILL CONT. TO MONITOR.
--- NOTE | 2017-08-01 03:27 | NUR ---
PATIENT ADMITTED TO THIS FLOOR WITH RED AREA TO BUTTOCKS. WILL CONT. TO TURN FROM SIDE TO SIDE.
[2017-08-01 04:52] LABS: HEMATOCRIT 38.2 % (42.0-52.0); HEMOGLOBIN 12.5 gm/dL (14.0-18.0); MCH 27.8 pg (26.0-34.0); MCHC 32.7 g/dL (28.0-37.0); MPV 9.2 fl. (7.2-11.1); RBC 4.5 mil/uL (4.50-6.00); RDW-CV 14.7 % (10.5-14.5); WBC 9.2 thou/uL (4.0-11.0)
[2017-08-01 05:25] LABS: BE 13.2 mmol/L (-2 to +3); PO2 121.8 mmHg (75.0-100.0); pH 7.394 (7.340-7.450)
[2017-08-01 05:27] LABS: PCO2 68.7 mmHg (35.0-45.0)
[2017-08-01 05:37] LABS: CALCIUM 8.6 mg/dL (8.5-10.1); CREATININE 0.8 mg/dL (0.6-1.3); POTASSIUM 3.9 mmol/L (3.5-5.1)
--- NOTE | 2017-08-01 16:26 | NUR ---
CM SPOKE TO THE PATIENT TO DISCUSS DISCHARGE PLANNING NEEDS. PATIENT RECENTLY DISCHARGED FROM THE HOSPITAL TO [facility]. PATIENT STATES THAT HE WILL NOT RETURN THERE AND DISCHARGE AND WOULD RATHER GO HOME. CM INFORMED PATIENT OF THE NEED TO GO TO SNF AT D/C. PATIENT IN AGEREEMENT AND REQUEST THAT A REFERRAL BE SENT TO [facility]. CM CONTACTED [facility] TO INFORM OF THE REFERRAL AND FAXED PATIENTS FACESHEET, H&P, AND MED LIST. CM WILL REMAIN AVAILABLE TO ASSIST AND FOLLOW NEEDED.
--- NOTE | 2017-08-01 17:00 | NUR ---
PT ON BIPAP THIS AM UPON FIRST ENCOUNTER. PT OFF BIPAP FOR BREAKFAST AND AM MEDICATIONS, THEN BECAME DYSPNEIC AND PLACED BACK ON BIPAP. DR. OSEI TO BEDSIDE FOR ASSESSMENT, PT REMOVED FROM BIPAP BY RESPIRATORY PER DR. OSEI. BIPAP TO BE USED PRN. PT UP TO CHAIR MOST OF AFTERNOON. SO TO ROOM FOR VISIT AND HELPED PT SHAVE. BLOOD GLUCOSE MONITORED ORDERED WITH SSI GIVEN PER SEP. VS OBTAINED. ASSESSMENT COMPLETE. EDUCATION GIVEN R/T MANAGEMENT OF ANXIETY WHEN DYSPNEIC EVENT OCCURS. DISCUSSED SOA DURING MEALS AND TAKING TIME WITH MEALS. REVIEWED SLOW BREATHING EXERCISES AND DISTRACTION BY IMAGERY. PT NEEDS REINFORCEMENT WITH MANAGEMENT OF ANXIETY CAUSED BY DYSPNEA. ABLE TO COMMUNICATE NEEDS TO STAFF, A & O X 4. CALL LIGHT IN REACH.
--- NOTE | 2017-08-01 17:11 | NUR ---
WOUND CARE NOTE: ASSESSMENT FOR PRESSURE ULCER. PATIENT PRESENTS WITH BLANCHABLE REDNESS TO SACRAL AREA AND UPPER POSTERIOR THIGHS FROM SITTING IN CHAIR. ALSO HAS A PARTIAL THICKNESS WOUND TO THE LEFT BUTTOCK, BELIEVE MAY BE FROM FRICTION/SHEARING. APPLIED BARRIER OINTMENT. PATIENT ALSO HAS A FULL THICKNESS ULCERATION TO THE LOWER LEFT QUADRANT UNDERNEATH HIS ABDOMINAL FOLD. THIS WAS PRESENT DURING LAST ADMISSION, BUT IS HEALING. WOUNDS WERE MEASURED BY PATIENT'S RN, PLEASE SEE THAT DOCUMENTATION FOR THE MEASUREMENTS. AREA WAS CLEANSED WITH WITH WOUND CLEANSER, PATTED DRY. APPLIED AQUACEL AG AND SECURED WITH A BORDERED FOAM. PATIENT TOLERATED DRESSING CHANGES WELL. EDUCATED PATIENT ON DRESSING SELECTION AND OFFLOADING, COMMUNICATED UNDERSTANDING. OBTAINED WAFFLE CUSHION FROM CS AND GAVE TO PATIENT'S RN. RECOMMEND TURN Q2 HOURS WAFFLE CUSHION WHEN IN CHAIR BARRIER OINTMENT BID AND PRN ENCOURAGE GOOD NUTRITION AND HYDRATION FOR WOUND HEALING.
[2017-08-02] VITALS: BP 88/50
--- NOTE | 2017-08-02 03:45 | NUR ---
PT ALERT ORIENTED. INITALLY SITTING UP IN CHAIR. 02 AT 5 LITERS NC. PT PLACED IN BED AND PLACED ON BIPAP. 17/5, RR 16, FIO2 AT 40% PT CALLING OUT APPROPRIATLY. VOIDS SM AMTS DK YELLOW PER URINAL. FOAM DRSG ON L PANUS D/I. LEFT BUTTOCK RED NON BLANCHABLE. CREAM APPLIED. TELEMETRY SHOWS SR. DENIES PAIN. WILL CONTINUE TO MONITOR.
[2017-08-02 04:00] VITALS: BP 102/59
[2017-08-02 05:21] LABS: ABSOLUTE EOSINOPHILS 0.1 thou/uL (0.0-0.7); ABSOLUTE LYMPHOCYTES 1.3 thou/uL (0.8-5.3); ABSOLUTE MONOCYTES 0.8 thou/uL (0.0-1.2); ABSOLUTE NEUTROPHILS 5.2 thou/uL (1.6-8.1); BASOPHILS 0.4 %; HEMATOCRIT 34.5 % (42.0-52.0); HEMOGLOBIN 11.3 gm/dL (14.0-18.0); LYMPHOCYTES 16.7 %; MCHC 32.9 g/dL (28.0-37.0); MCV 85.2 fL (80.0-100.0); MONOCYTES 11.3 %; MPV 8.9 fl. (7.2-11.1); NUCLEATED RBCS 0 /100WBC; PLATELET COUNT* 109 thou/uL (150-400); POLYS 69.6 %; RBC 4.05 mil/uL (4.50-6.00); RDW-CV 14.5 % (10.5-14.5); WBC 7.5 thou/uL (4.0-11.0)
[2017-08-02 05:28] LABS: CALCIUM 8.2 mg/dL (8.5-10.1); CREATININE 0.8 mg/dL (0.6-1.3); POTASSIUM 3.5 mmol/L (3.5-5.1)
--- NOTE | 2017-08-02 06:31 | NUR ---
PT OFF BIPAP AND PLACED ON 5 LITERS NC. ATIVAN GIVEN THIS AM FOR ANXIETY ASSOCIATED WITH SOA. PT RESTING CALMLY.
[2017-08-02 08:45] VITALS: BP 121/64
--- NOTE | 2017-08-02 11:25 | EKG ---
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: : 1940 Requested By: Viktoriya Lange Order Number: [id number] Jamal MD: Jeffrey Morales Measurements Intervals [place] Rate: 97 P: 75 [place]: 129 QRS: 52 QRSD: 82 T: 74 QT: 377 QTc: 479 Interpretive Statements Sinus rhythm Ventricular premature complex Borderline prolonged QT interval Baseline wander in lead(s) V1,V2,V3 Compared to ECG 07/30/2017 20:22:35 Ventricular premature complex(es) now present Sinus tachycardia no longer present ST (T wave) deviation no longer present Electronically Signed On 08-02-2017 11:25:26 MANAGER OF BUSINESS OPERATIONS by Jeffrey Morales [email or web address] <ELECTRONICALLY SIGNED> By: Jeffrey Morales MD, FACC 08/02/17 1125 2258 [id number] Jeffrey Morales MD, FAC /EPI
--- NOTE | 2017-08-02 11:48 | NUR ---
PT TO BE DISCHARGED TO [facility] AT 1330 VIA VAN. ORDERS FAXED. SPOKE TO [facility]. THEY ARE AWARE OF BIPAP AND GIVEN BIPAP SETTINGS. PT AWARE OF TRANSFER TODAY AND AGREEABLE
[2017-08-02 13:22] VITALS: BP 121/64
--- NOTE | 2017-08-02 14:00 | NUR ---
DISCHARGE INSTRUCTIONS REVIEWED WITH PT PRIOR TO DISCHARGE. ANSWERED QUESTIONS TO PATIENT SATISFACTION. PHOTOS TAKEN OF WOUND ON ABDOMEN AND REDDENED SKIN ON BUTTOCKS. IV AND MONITOR DISCONTINUED. PT IN POSSESSION OF ALL BELONGINGS. REPORT CALLED TO [facility]. PT LEFT UNIT AT APPROX 1430 VIA AND TRANSPORTER. TRANSPORTED VIA VAN TO [facility].
== END 2017-08-02 14:47 | DRG 177 ==
LOC: M.ERS 20:43 → M.TBA-ER 20:56 → M.2W 20:56
PROVIDERS: Emergency Medicine; Internal Medicine; ADMIT Internal Medicine
DX: J15.6 Pneumonia due to other Gram-negative bacteria (principal); J96.21 Acute and chronic respiratory failure with hypoxia; J44.1 Chronic obstructive pulmonary disease with (acute) exacerbation; J44.0 Chronic obstructive pulmonary disease with (acute) lower respiratory infection; I50.32 Chronic diastolic (congestive) heart failure; R65.10 Systemic inflammatory response syndrome (SIRS) of non-infectious origin without acute organ dysfunction; I10 Essential (primary) hypertension; F43.10 Post-traumatic stress disorder, unspecified; E11.65 Type 2 diabetes mellitus with hyperglycemia; Z90.49 Acquired absence of other specified parts of digestive tract; Z79.82 Long term (current) use of aspirin; Z79.899 Other long term (current) drug therapy; Z88.8 Allergy status to other drugs, medicaments and biological substances; Z82.49 Family history of ischemic heart disease and other diseases of the circulatory system; Z87.891 Personal history of nicotine dependence

== ENCOUNTER 2017-08-05 17:26 | Inpatient (IN) | payer MEDICARE ==
[~2017-08-05] VITALS: Ht 180.3 cm; Wt 81.6 kg
[~2017-08-05 17:26] MED LIST changes: +AZITHROMYCIN 2250 MG; +GLIPIZIDE 10 MG10 MG PO
[2017-08-05 17:59] LABS: HEMATOCRIT 37.5 % (42.0-52.0); HEMOGLOBIN 12.1 gm/dL (14.0-18.0); MCH 27.9 pg (26.0-34.0); MCHC 32.2 g/dL (28.0-37.0); MCV 86.5 fL (80.0-100.0); MPV 8.5 fl. (7.2-11.1); NUCLEATED RBCS 0 /100WBC; PLATELET COUNT* 148 thou/uL (150-400); RBC 4.34 mil/uL (4.50-6.00); RDW-CV 14.5 % (10.5-14.5); WBC 12.9 thou/uL (4.0-11.0)
[2017-08-05 18:01] LABS: BE 16.2 mmol/L (-2 to +3); PO2 99.5 mmHg (75.0-100.0); pH 7.365 (7.340-7.450)
[2017-08-05 18:02] LABS: HCO3 45.4 mmol/L (22.0-26.0); PCO2 81.3 mmHg (35.0-45.0)
[2017-08-05 18:07] LABS: BUN 25 mg/dL (7-18); CALCIUM 8.4 mg/dL (8.5-10.1); CHLORIDE 97 mmol/L (98-107); GLUCOSE 286 mg/dL (70-99); POTASSIUM 3.5 mmol/L (3.5-5.1); SODIUM 141 mmol/L (136-145)
[2017-08-05 18:09] LABS: INR 1.1; PROTIME 10.7 Seconds (9.20-11.50)
[2017-08-05 18:10] LABS: CO2 > 45 mmol/L (21-32)
[2017-08-05 18:21] LABS: ALBUMIN 3.1 g/dL (3.4-5.0); ALKALINE PHOSPHATASE 53 U/L (46-116); LIPASE 206 U/L (73-393); NT-PRO BRAIN NAT PEPTIDE 173 pg/mL (<300); SGOT 12 U/L (15-37); SGPT 16 U/L (30-65); TOTAL BILIRUBIN 0.7 mg/dL (<0.1-1.0); TROPONIN-I LEVEL <0.06 ng/mL (<0.06)
[2017-08-05 19:34] VITALS: BP 120/66
[2017-08-05 19:34] LABS: ABSOLUTE BASOPHILS 0.1 thou/uL (0.0-0.2); ABSOLUTE LYMPHOCYTES 0.3 thou/uL (0.8-5.3); ABSOLUTE MONOCYTES 0.3 thou/uL (0.0-1.2); ABSOLUTE NEUTROPHILS 12.3 thou/uL (1.6-8.1); PLATELET ESTIMATE DECREASED
[2017-08-05 20:00] VITALS: BP 111/73
[2017-08-05 22:00] VITALS: BP 148/81
[2017-08-05 23:18] LABS: URINE BILIRUBIN NEGATIVE (Negative); URINE BLOOD 3+ (Negative); URINE CLARITY CLEAR; URINE COLOR YELLOW; URINE GLUCOSE-RANDOM 2+ (Negative); URINE KETONES NEGATIVE (Negative); URINE LEUKOCYTES-REFLEX NEGATIVE (Negative); URINE NITRITE-REFLEX NEGATIVE (Negative); URINE PROTEIN NEGATIVE (Negative); URINE SPECIFIC GRAVITY 1.025 (1.005-1.030); URINE UROBILINOGEN 0.2 E.U./dl (0.2-1.0)
[2017-08-05 23:27] LABS: CRYSTALS None Seen /LPF (None Seen); FINE GRANULAR CASTS 0-3 Few /LPF (None Seen); HYALINE CASTS 4-10 Moderate /LPF (None Seen); MUCUS 4-6 Moderate strn/LPF (None Seen); SQUAMOUS 0-3 Few /LPF (0-3); URINE RBC >20 Many /HPF (0-2); WBC CLUMPS Few (None Seen)
[2017-08-06] VITALS (16 sets, daily range): BP systolic 92–138; BP diastolic 46–75
--- NOTE | 2017-08-06 06:41 | NUR ---
MINIMAL PROGRESSION TOWARDS GOALS. ASSESSMENT AND VS OBTAINED, SEE CHARTING. TRAFFIC CONTROL SIGNALER ON AND TRACING ST. PT HAS BEEN VERY ANXIOUS, CALLED AND GOT AN ORDER OF ATIVAN AND PT FELT MUCH BETTER. PIC TAKEN OF WOUND ON PT'S COCCXY. CONSULT FOR WOUND NURSE WAS DONE.
[2017-08-06 14:28] LABS: BE 14.7 mmol/L (-2 to +3); PO2 96.1 mmHg (75.0-100.0); pH 7.379 (7.340-7.450)
[2017-08-06 14:33] LABS: HCO3 43.2 mmol/L (22.0-26.0); PCO2 74.8 mmHg (35.0-45.0)
--- NOTE | 2017-08-06 18:57 | NUR ---
PT ASSESSMENT CHARTED. PATIENT VERY ANXIOUS ON AND OFF THROUGHOUT THE DAY. PRN ATIVAN ORDER RECEIVED. VSS. EKG DONE THIS AM TO RULE OUT AFIB PATIENTS RHYTHM BECAME IRREGULAR AND HR WAS IN THE 120-130'S. CT CHEST COMPLETED. NO OTHER COMPLAINTS THROUGHOUT THE DAY.
--- NOTE | 2017-08-06 20:27 | NUR ---
RECIEVED ORDERS FROM DR. PAREDES TO TRANSFER TO TELE.
--- NOTE | 2017-08-06 22:45 | NUR ---
RECEIVED PATIENT TRANSFER FROM ICU AT THIS TIME. PT ORIENTED TO ROOM, CALL LIGHT IN REACH, SAFETY PRECAUTIONS IN PLACE. REGIONAL EXTENSION SERVICE SPECIALIST PLACED ON PATIENT. NO REPORTS OF PAIN. AGREE WITH PREVIOUS ASSESSMENT CHARTED THIS EVENING ON PATIENT. WILL CONT TO MONITOR.
[2017-08-07 04:06] VITALS: BP 149/83
--- NOTE | 2017-08-07 05:09 | NUR ---
END SHIFT: PT RESTED WELL. TOLERTED BIPAP. REMAINS ST, LOW 100'S. VSS. NO COMPLAINTS OF PAIN OVERNIGHT. PROGRESSING TOWARDS GOALS. SAFETY PRECAUTIONS IN PLACE. PERFORMED HOURLY ROUNDING. WILL CONT TO MONITOR.
[2017-08-07 05:11] LABS: HEMATOCRIT 34.7 % (42.0-52.0); HEMOGLOBIN 11.3 gm/dL (14.0-18.0); MCH 28.2 pg (26.0-34.0); MCHC 32.7 g/dL (28.0-37.0); MCV 86.3 fL (80.0-100.0); MPV 9.1 fl. (7.2-11.1); RBC 4.02 mil/uL (4.50-6.00); RDW-CV 14.4 % (10.5-14.5); WBC 10.3 thou/uL (4.0-11.0)
[2017-08-07 05:40] LABS: ALBUMIN 2.7 g/dL (3.4-5.0); CALCIUM 8.5 mg/dL (8.5-10.1); CREATININE 0.8 mg/dL (0.6-1.3); POTASSIUM 3.8 mmol/L (3.5-5.1); TOTAL BILIRUBIN 0.8 mg/dL (<0.1-1.0); TOTAL PROTEIN 5.5 g/dL (6.4-8.2)
[2017-08-07 10:00] VITALS: BP 139/76
--- NOTE | 2017-08-07 10:00 | CON ---
[address] [address] CONSULTATION Name: ABDIAS PALUMBO Room: [address] IN M.R.#: [id number] Admission: 08/05/17 Attend Phys: Sy Shaw, Discharge: Date of : 39 Report #: [id number] THIS REPORT FOR: //name// CC: FAM unknown Sy Shaw HISTORY OF PRESENT ILLNESS: The patient is a 77-year-old male patient with a chronic respiratory failure. His baseline oxygen needs is 5 liters per minute. He was hospitalized twice in the last few weeks at this facility with COPD exacerbation. He was discharged to nursing facility on BiPAP and oxygen. The patient told me of the 3 nights he spent there he only use the BiPAP once on 1 night. He is not sure why the other 2 nights he told me to stop it and put it on. He has history of smoking in the past. Most of his case in the past was at the [facility]. He has chronic respiratory failure, on oxygen at home. He reports that yesterday he started having increasing shortness of breath, wheezes and cough. The cough is mostly dry, but occasionally he would produce some brown sputum. He was in respiratory distress and was placed on BiPAP. This morning, he was taken off BiPAP, but he still has increased work of breathing. He was on 4 liters oxygen with O2 saturation more than 90%. His chest x-ray actually did not showing any acute infiltrate. He reported no headache or blurring of vision. He is not sure if he had any fever. He had no abdominal pain, no dysuria, no frequency, no urgency, no increase in the lower extremity edema. The rest of the review system was negative. PAST MEDICAL HISTORY: Chronic respiratory failure, COPD, baseline oxygen is 4 liters, recent discharged, he was supposed to be on BiPAP, which actually he used once at the nursing facility. He does not feel dependent at this time. ALLERGIES: No known medication allergies. FAMILY HISTORY: Reviewed with the patient, noncontributory. SOCIAL HISTORY: He is a prior smoker. He does not smoke anymore. He does not abuse drugs. REVIEW OF SYSTEMS: Twelve systems reviewed with the patient other than those mentioned above. MEDICATIONS: For admission was glipizide, azithromycin, Lasix, omeprazole, fluticasone, levalbuterol, terazosin, budesonide, pravastatin, lorazepam, ferrous sulfate, DuoNebs. PHYSICAL EXAMINATION: VITAL SIGNS: When I saw him, he was just taken off of the BiPAP on 4 liters oxygen with some increase work of breathing with saturation 95%, pulse rate overall 100, blood pressure 138/55, afebrile. GENERAL APPEARANCE: Awake, alert, oriented in mild respiratory distress, [place] [address] CONSULTATION Name: ABDIAS PALUMBO Shirlene Room: [address]#: [id number] Admission: 08/05/17 Attend Phys: Sy Shaw, Discharge: Date of : 39 Report #: [id number] questions appropriately. HEENT: Head normocephalic, atraumatic. Oral cavity, moist mucous membrane, Mallampati of 2. External ear looks healthy and normal. NECK: Supple. No palpable lymph node. No palpable thyroid. Trachea is central. CHEST: Diminished air movement bilaterally, prolonged expiratory phase with expiratory wheezes. No crackles. HEART: S1, S2. Tachycardic. ABDOMEN: Benign, soft, lax, nontender, positive bowel sounds. EXTREMITIES: Lower extremity, trace edema, no calf tenderness. SKIN: Normal for age and race no rash. NEUROLOGIC: Awake, alert and oriented. Moving all 4 extremities spontaneously. LYMPHATICS: No palpable lymph nodes. LABORATORY DATA: His white blood count 12.9 with hemoglobin 12.1, platelets 148. His ABGs upon presentation 7.36/81/99 and this was done on 3-liter oxygen. His INR is 1.1. His creatinine is 1 with bicarbonate 45 and potassium 3.5. His BNP was not elevated. His chest x-ray did not show acute infiltrate, but showed chronic changes with COPD. IMPRESSION: 1. Ygyux-fr-flwpvsv hypoxic respiratory failure. 2. Chronic obstructive pulmonary disease exacerbation. 3. History of smoking. PLAN: At this point, I would continue the patient on the BiPAP. He can take breaks on and off for a short period of time for feeding and medication; however, with the work of breathing, he would benefit from staying on BiPAP most of the time this will include during the night. I increase the steroid dose. I increase the frequency of the nebulization treatment. I would continue the rest of the therapy as you are doing including Brovana and Pulmicort. We will do a repeat ABG tomorrow morning. CONDITION: Guarded. PROGNOSIS: Guarded, especially with the current hospitalization for the same problem. Thank you for the consult. We will follow along with you. <ELECTRONICALLY SIGNED> By: Celi Ruvalcaba MD 08/07/17 1000 26Celi Ruvalcaba MD /nt
--- NOTE | 2017-08-07 10:26 | NUR ---
INITIAL ASSESSMENT: Pt evaluated for d/c planning needs. Reviewed chart and spoke with nurse and pt. Pt is alert and oriented. Pt was hospitalized earlier this month and went to [facility]. Pt was re-admitted to [facility] and wanted to go to a different facility. Referral sent to [facility]. Pt was accepted and went to [facility] on 08/02/17. Pt re-admitted. Spoke with admissions liaison at [facility] and they will not have a bed available until Monday. Pt wants to be evaluated for inpatient rehab at [facility]. Will ask physician to request consult.
--- NOTE | 2017-08-07 11:12 | NUR ---
WOUND CARE NOTE: CONSULT RECEIVED FOR OPEN AREA ON BUTTOCKS. PATIENT PRESENTS WITH A HEALING PARTIAL THICKNESS WOUND TO THE LEFT BUTTOCK, BELIEVE IT IS A FRICTION/SHEARING TYPE WOUND. DEJAH-WOUND INTACT WITH NEW EPITHELIUM. WOUND MEASURES 3X1.5X0.2. WOUND BED IS MOIST, PINK. GENTLY CLEANSED WITH WOUND CLEANSER, APPLIED AQUACEL AG. SECURED WITH A BORDERED FOAM. PATIENT TOLERATED DRESSING CHANGE WELL. CURRENTLY TURNED ONTO HIS RIGHT SIDE WITH A WEDGE. EDUCATED PATIENT ON KEEPING OFF WOUND, COMMUNICATED UNDERSTANDING. RECOMMEND TURN Q2 HOURS, KEEP OFF WOUND WAFFLE CUSHION WHEN IN CHAIR ENCOURAGE GOOD NUTRITION AND HYDRATION
[2017-08-07 12:25] VITALS: BP 151/59
[2017-08-07 15:49] VITALS: BP 138/69
--- NOTE | 2017-08-07 16:50 | NUR ---
ASSUMED PT CARE AT 0700 PT DENIES PAIN PT IS ON 5L/NC, PT BECAME SOA PT WAS SITTING ON SIDE OF BED SATING BELOW 90 CALLED REPIRATORY AND PUT PT BACK ON BIPAP WHICH RESPIRTORY WANTS PT TO STAY ON EXCEPT AT MEALS, REMOVED PT KLEIN PER PHYSICIAN ORDER, GAVE PT ANTIBIOTICS NO ADVERSE EFFECTS NOTED, PT IS IRRITABLE THIS NURSE ASKED PT IF PT WAS ABLE TO HOLD URINAL WHEN PT NEEDED TO URINATE AND PT YELLED "YOU ARE A PAIN IN THE ASS", PT IS BEDREST CAN SIT ON SIDE OF BED, PT IS ALERT AND ORIENTED X 4, WILL CONTINUE TO MONITOR
--- NOTE | 2017-08-07 17:19 | NUR ---
RECEIVED CONSULT FOR POSSIBLE REHAB ADMISSION. CONSULT HAS BEEN ACKNOWLEDGED BY MANAGER SEARCH ENGINE AND DR. BAUMANN. PT ADMITTED WITH COPD EXACERBATION AND RESPIRATORY FAILURE. PT WAS ADMITTED TO HOSPITAL RECENTLY AND DISCHARGED TO SNF WITH RETURN TO HOSPITAL AFTER 2 DAYS THEN BACK TO SNF AND RETURN TO HOSPITAL AFTER 3 DAYS. PT/OT EVALUATIONS TODAY WERE ONLY ABLE TO DO BED LEVEL ACTIVITIES 2TO NURSE REQUESTING TO HOLD THERAPIES TO BED LEVEL ONLY. SPOKE WITH NURSE HOWELL STATES PT HAD TO BE PUT BACK ON BIPAP TODAY DUE TO LOW 02 SATS AND IS ONLY ALOWED TO TAKE IT OFF TO EAT PER RT. PT WOULD NOT BE ABLE TO TOLERATE OR PARTICIPATE IN 3 HOURS OF THERAPY PER DAY AT THIS TIME. WILL FOLLOW ALONG WITH PT TO SEE HOW HE PROGRESSES MEDICALLY AND IF ABLE TO TOLERATE THERAPIES TO DETERMINE ACUTE REHAB VS. SNF. THANK YOU FOR THIS REFERRAL.
[2017-08-07 20:12] VITALS: BP 144/60
[2017-08-08 00:17] VITALS: BP 136/64
[2017-08-08 04:00] VITALS: BP 134/73
--- NOTE | 2017-08-08 07:54 | NUR ---
PT IS ABLE TO COMMUNICATE HIS NEEDS TO STAFF EFFECTIVELY. HE HAS DENIED THE NEED FOR PAIN MEDICATIONS UP TO THIS TIME. PT DID WEAR HIS BIPAP WHILE SLEEPING DURING THIS SHIFT.
[2017-08-08 09:00] VITALS: BP 104/57
--- NOTE | 2017-08-08 11:53 | NUR ---
ASSUMED PT CARE AT 0700 PT DENIES PAIN PT IS ON 5L/NC, RESPIRATORY PUT PT ON BIPAP AROUND 1000 PT HAVING DIFFICULTY BREATHING AFTER PHYSICIAL THERAPY GOT PT ON COMMODE, INCREASED INSULIN SLIDING SCALE FROM LOW TO MODERATE PER PROTOCOL, PT IS ALERT AND ORIENTED X 4 PT IS MORE COOPERATIVE TODAY, PT AROUND NOON BLOOD SUGAR IS 443 THIS NURSE NOTIFIED PHYSICIAN NEW ORDER OBTAINED, PT IS UP WITH ASSIST TO BEDSIDE COMMODE WITH PHYSICIAL THERAPY PT WAS SOA, OCCUPATIONAL THERAPY WORKING WITH PT SITTING ON SIDE OF THE BED, WILL CONTINUE TO MONITOR
[2017-08-08 12:01] VITALS: BP 115/70
--- NOTE | 2017-08-08 14:01 | NUR ---
CM SPOKE TO THE PATIENT TO DISCUSS DISCHARGE PLANNING NEEDS. CM INFORMED THE PATIENT THAT THE REHAB LIASION'S NOTED HAD INDICATED THAT THE PATIENT MAY NOT BE ABLE TO TOLERATE THE 3 HOURS OF THERAPY REQUIRED FOR ACUTE INPATIENT REHAB. PATIENT IN AGREEMENT. PATIENT STATES 'I WILL JUST GO BACK TO [facility]'. CM CONTACTED ERIC AT [facility] TO INFORM OF THIS AND LEFT A VOICEMAIL TO RETURN CALL REGUARDING ABILITY TO ACCEPT PATIENT AT DISCHARGE. CM WILL REMAIN AVAILABLE TO ASSIST AND FOLLOW NEEDED.
--- NOTE | 2017-08-08 14:15 | NUR ---
NUTRITION: PT ASSESSED FOR PRESSURE ULCER ON LT BUTTOCK. PT EATING 25-50% OF MEALS. ON BIPAP EXCEPT FOR MEALS. ADMITTED WITH RESP FAILURE. H/O COPD, SMOKER. LABS: ALB 2.7, BXBWJJ66.9, BG 171-237. NO NUTRITION INTERVENTIONS NEEDED AT THIS TIME. LOW TO MILD RISK. RECOMMEND MVI FOR WOUND HEALING (VITAMIN A, VITAMIN C, ZINC).
[2017-08-08 15:50] VITALS: BP 108/64
--- NOTE | 2017-08-08 17:32 | NUR ---
ASSUMED PT CARE AT 0700 PT IS ALET AND ORIENTED X 4 PT DENIES PAIN PT WAS ON 5L/NC THIS AM PT HAS DIFFICULTY BREATHING PUT PT ON BIPAP REPIRATORY SAW PT WHO WANTED PT ON THE BIPAP FOR 4 HOURS AND OFF THE BIPAP FOR 4 HOURS TOOK PT OFF BIPAP AT NOON TO EAT AND AROUND 1500 PT HAS DIFFICULTY BREATHING PUT PT BACK ON BIPAP, PT IS PLEASNAT AND COOPERATIVE PT TALKED WITH CASE MANAGEMENT AND STATED HE WANTED TO GO BACK TO THE [facility] AFTER TALKING WITH HIS NEIGHBOR WHO HELPS CARE FOR PT HE DECIDED TO DISCHARGE HOME WITH POSSIBLE HOME HEALTH WHEN PT DISCHARGES, PT IS SR WITH PAC ON MONITOR, PT BLOOD SUGAR AROUND NOON WAS [address] OSEI NO NEW ORDERS OBTAINED THIS NURSE INCREASED HUMALOG SLIDING SCALE FRON LOW DOSE TO MODERATE DOSE RECHECKED PT BLOOD SUGAR THIS EVENING AND BLOOD SUGARS IMPROVED, WILL CONTINUE TO MONITOR
--- NOTE | 2017-08-08 17:33 | EKG ---
[place] [address] ELECTROCARDIOGRAM REPORT Name: ABDIAS PALUMBO Room: [address] ADM IN .R.#: [id number] Admission: 08/05/17 Attend Phys: Sy Shaw, Discharge: Date of : 39 Report #: [id number] THIS REPORT FOR: //name// [facility] ED Test Date: 2017-08-05 Test Time: 17:30:45 Pat Name: ABDIAS MARIA ISABELINÉS Department: Room: [facility] Gender: M Pacu Rn: : 1940 Requested By: Jose Moffett Order Number: [id number] MD: Marcell Davidson Measurements Intervals [place] Rate: 145 P: 55 CT: 114 QRS: 26 QRSD: 107 T: 83 QT: 324 QTc: 504 Interpretive Statements Sinus tachycardia with premature atrial complexes Baseline wander in lead(s) II,III,aVR,aVL,aVF,V3 Compared to ECG 08/01/2017 22:58:17 sinus tachycardia is new Electronically Signed On 08-08-2017 17:33:32 SOIL SAMPLER by Marcell Davidson [email or web address] <ELECTRONICALLY SIGNED> By: Marcell Davidson MD, FACC 08/08/17 1733 1730 1730 Marcell Davidson MD, FAC /EPI
[2017-08-08 20:00] VITALS: BP 108/61
[2017-08-09 00:05] VITALS: BP 114/67
--- NOTE | 2017-08-09 02:15 | NUR ---
RESTING IN BED. CONT. BIPAP AT NIGHT. DENIES PAIN OR DISCOMFORT. INCONT. AT TIMES. TURN EVERY 2 HOURS. NO SIGN OF DISTRESS. WILL CONT. TO MONITOR. BED IN LOW POSITION, CALL LIGHT IN REACH, BED ALARM ON.
[2017-08-09 04:00] VITALS: BP 102/65
[2017-08-09 05:29] LABS: ABSOLUTE LYMPHOCYTES 1.1 thou/uL (0.8-5.3); ABSOLUTE NEUTROPHILS 6.6 thou/uL (1.6-8.1); BASOPHILS 0.2 %; EOSINOPHILS 0.5 %; HEMATOCRIT 36.9 % (42.0-52.0); HEMOGLOBIN 11.9 gm/dL (14.0-18.0); LYMPHOCYTES 12.8 %; MCHC 32.4 g/dL (28.0-37.0); MCV 86.3 fL (80.0-100.0); MONOCYTES 10.9 %; MPV 9.1 fl. (7.2-11.1); NUCLEATED RBCS 0 /100WBC; PLATELET COUNT* 142 thou/uL (150-400); POLYS 75.6 %; RBC 4.27 mil/uL (4.50-6.00); RDW-CV 14.6 % (10.5-14.5); WBC 8.7 thou/uL (4.0-11.0)
[2017-08-09 05:32] LABS: CALCIUM 8.8 mg/dL (8.5-10.1); CREATININE 0.9 mg/dL (0.6-1.3); POTASSIUM 3.4 mmol/L (3.5-5.1)
[2017-08-09 08:00] VITALS: BP 133/71
--- NOTE | 2017-08-09 09:58 | NUR ---
Khloe De, with [facility], here to check on Pt. She informs that Pt has big data admin, Ellen, through her agency. Khloe unable to provide CM with how many hours of care Pt receives at home. Spoke with David at [facility], they are anticipating Pt dcing to them today, waiting for Dr to round. Followoing.
[2017-08-09 11:36] VITALS: BP 98/57
--- NOTE | 2017-08-09 12:10 | NUR ---
ASSUMED CARE OF PATIENT THIS AT 0730. PATIENT IS ALERT AND ORIENTED X 4. HE IS ON BIPAP THIS AM. PATIENT TAKEN OFF BIPAP AND PLACED ON O2 THIS AM DURING BREAKFAST. PATIENT REQUESTED TO BE BACK ON BIPAP AFTER LESS THAN [address] OSEI IN AND NOTIFIED. PLANS TO DISCHARGE PATIENT BACK TO SNF THIS AFTERNOON. PATIENT MEDICATED FOR ANXIETY THIS AFTERNOON AND TAKEN BACK OFF BIPAP FOR LUNCH. SECURITY NOTIFIED TO RETURN PATIENT'S BELONGINGS. WILL CONTNIUE TO MONITOR PATIENT'S RESPIRATORY STATUS.
[2017-08-09] MEDS ORDERED: ATIVAN0.5 MG PO (13:02)
[2017-08-09] MEDS ORDERED: AUGMENTIN 875-1 EACH PO (13:04)
[2017-08-09] MEDS ORDERED: LEVAQUIN 750 M750 MG PO (13:05)
[2017-08-09] MEDS ORDERED: HUMALOG100 UNIT/1 SUBQ (13:07)
[2017-08-09 13:09] VITALS: BP 98/57
--- NOTE | 2017-08-11 09:06 | EKG ---
[place] [address] ELECTROCARDIOGRAM REPORT Name: ABDIAS PALUMBO Room: [address] IN M.R.#: [id number] Admission: 08/05/17 Attend Phys: Sy Shaw, Discharge: 08/09/17 Date of : 39 Report #: [id number] THIS REPORT FOR: //name// [facility] Test Date: 2017-08-06 Test Time: 08:23:58 Pat Name: ABDIAS PALUMBO Department: Room: [address] Gender: M Instrument Fitter: VANNESA : 1940 Requested By: Sy Shaw Order Number: [id number] Reading MD: Bethel Keller Measurements Intervals [place] Rate: 126 P: 72 SD: 150 QRS: 37 QRSD: 98 T: 59 QT: 345 QTc: 500 Interpretive Statements Sinus tachycardia Multiform atrial premature complexes Minimal ST depression, inferior leads Minimal ST elevation, lateral leads Compared to ECG 08/01/2017 22:58:17 ST (T wave) deviation now present Sinus rhythm no longer present Electronically Signed On 08-06-2017 16:01:18 JOB SETTER HONING by Bethel Keller SETTER HONING [email or web address] <ELECTRONICALLY SIGNED> By: Logan Keller MD, [facility] 08/11/17905 2 2 Logan Keller MD, [facility] /EPI
== END 2017-08-09 16:38 | DRG 177 ==
LOC: M.ERS 17:26 → M.2W 18:24 → M.TBA-ER 18:24 → M.ICU 18:38 → M.2W 08-06 21:05
PROVIDERS: Emergency Medicine; Internal Medicine; ADMIT Family Medicine
PROC: 5A09457 Assistance with Respiratory Ventilation, 24-96 Consecutive Hours, Continuous Positive Airway Pressure (ICD-10-PCS; principal; 2017-08-05)
DX: J69.0 Pneumonitis due to inhalation of food and vomit (principal); J96.21 Acute and chronic respiratory failure with hypoxia; J96.22 Acute and chronic respiratory failure with hypercapnia; N17.0 Acute kidney failure with tubular necrosis; J44.1 Chronic obstructive pulmonary disease with (acute) exacerbation; E11.9 Type 2 diabetes mellitus without complications; F43.10 Post-traumatic stress disorder, unspecified; I10 Essential (primary) hypertension; K21.9 Gastro-esophageal reflux disease without esophagitis; E78.5 Hyperlipidemia, unspecified; F32.9 Major depressive disorder, single episode, unspecified; F41.9 Anxiety disorder, unspecified; Z99.81 Dependence on supplemental oxygen; Z79.84 Long term (current) use of oral hypoglycemic drugs; Z79.82 Long term (current) use of aspirin; Z79.51 Long term (current) use of inhaled steroids; Z79.899 Other long term (current) drug therapy; Z87.891 Personal history of nicotine dependence; Z88.8 Allergy status to other drugs, medicaments and biological substances; Z82.49 Family history of ischemic heart disease and other diseases of the circulatory system

== ENCOUNTER 2017-08-17 13:03 | Inpatient (IN) | payer MEDICARE ==
[~2017-08-17] VITALS: Ht 172.7 cm; Wt 79.4 kg
[~2017-08-17 13:03] MED LIST changes: +ATIVAN0.5 MG PO; +AUGMENTIN 875-1 EACH PO
[2017-08-17] MEDS ORDERED: LEVALBUTER1.25 MG/0. INH (13:30)
[2017-08-17 13:34] LABS: ABSOLUTE BASOPHILS 0.1 thou/uL (0.0-0.2); ABSOLUTE EOSINOPHILS 0.1 thou/uL (0.0-0.7); ABSOLUTE LYMPHOCYTES 1.2 thou/uL (0.8-5.3); ABSOLUTE MONOCYTES 0.8 thou/uL (0.0-1.2); ABSOLUTE NEUTROPHILS 8.6 thou/uL (1.6-8.1); BASOPHILS 0.7 %; EOSINOPHILS 0.7 %; HEMATOCRIT 34.7 % (42.0-52.0); HEMOGLOBIN 11.5 gm/dL (14.0-18.0); LYMPHOCYTES 11.2 %; MCH 28.8 pg (26.0-34.0); MONOCYTES 7.4 %; MPV 9.3 fl. (7.2-11.1); NUCLEATED RBCS 0 /100WBC; PLATELET COUNT* 132 thou/uL (150-400); RBC 3.99 mil/uL (4.50-6.00); RDW-CV 14.9 % (10.5-14.5); WBC 10.7 thou/uL (4.0-11.0)
[2017-08-17 13:43] LABS: CREATININE 0.9 mg/dL (0.6-1.3); POTASSIUM 3.8 mmol/L (3.5-5.1)
[2017-08-17 13:47] LABS: MAGNESIUM 1.9 mg/dL (1.8-2.4); TOTAL BILIRUBIN 0.9 mg/dL (<0.1-1.0); TOTAL PROTEIN 6.1 g/dL (6.4-8.2)
[2017-08-17 14:26] LABS: INFLUENZA A ANTIGEN None Detected (None Detect); INFLUENZA B ANTIGEN None Detected (None Detect)
[2017-08-17 14:33] LABS: BE 16.6 mmol/L (-2 to +3); PO2 78.9 mmHg (75.0-100.0); pH 7.338 (7.340-7.450)
[2017-08-17 14:37] LABS: HCO3 46.1 mmol/L (22.0-26.0); PCO2 87.9 mmHg (35.0-45.0)
--- NOTE | 2017-08-17 15:09 | NUR ---
PT ATTEMPTED TO DEFECATE AT THIS TIME ON BEDPAN, STATED DID NOT HAVE TO URINATE. AFTER TAKING OFF BEDPAN, PT DID NOT DEFECATE, AND URINATED ON SHEETS SO COULD NOT COLLECT SAMPLE. CHANGED BED SHEETS AT THIS TIME.
[2017-08-17 16:11] VITALS: BP 141/69
--- NOTE | 2017-08-17 16:33 | EKG ---
[place] [address] ELECTROCARDIOGRAM REPORT Name: ABDIAS PALUMBO Room: [place] [address] ADM IN .R.#: [id number] Admission: 08/17/17 Attend Phys: Eric Charles MD Discharge: Date of : 39 Report #: [id number] THIS REPORT FOR: //name// [facility] ED Test Date: 2017-08-17 Test Time: 13:06:17 Pat Name: ABDIAS PALUMBO Department: Room: [place] [address] Gender: M Environmental Services Director: ELISEO : 1940 Requested By: Evelyn Fisher Order Number: [id number] Jamal MD: Jeffrey Morales Measurements Intervals [place] Rate: 135 P: 0 NV: 91 QRS: 29 QRSD: 85 T: 80 QT: 310 QTc: 465 Interpretive Statements Sinus tachycardia Multiple premature complexes, supraven Baseline wander in lead(s) II,III,aVF,V4,V5 Compared to ECG 08/06/2017 08:23:58 no changes Electronically Signed On 08-17-2017 16:33:25 SUPPLY CHAIN ASSOCIATE by Jeffrey Morales [email or web address] <ELECTRONICALLY SIGNED> By: Jeffrey Morales MD, FAC 08/17/17 1633 1306 1306 Jeffrey Morales MD, [facility] /EPI
--- NOTE | 2017-08-17 18:12 | NUR ---
PT ARRIVED ON THE UNIT AT 1635. ASSESSED AND DOCUMENTED. PT ON CARDIAC MONITER TRACING ST. VSS WNL. PT TAKEN OFF BI-PAP AND PUT ON 5L. PT HAS HAND TREMORS AND 2+ EDEMA IN BLE'S, PT HAS NOTED WHEEZING IN ALL LOBES. CTA WAS ORDERED AND AWAITING RESULTS. PT HAD A BS OF 192 3 UNITS WERE GIVEN. PT HAS A RASH ON HIS L INTERIOR ANKLE. NS STARTED AT 100 PER HOUR. PT HAS A RED EXCORIATED COCCYX AND WILL BE ON Q2 HOUR TURN AND REPOSTIONING.
[2017-08-17 20:00] VITALS: BP 134/64
[2017-08-18] VITALS: BP 104/57
--- NOTE | 2017-08-18 02:33 | NUR ---
ALERT AND ORIENTED X 4, CONT. BIPAP AT NIGHT. CONT. TO MONITOR RESP STATUS. USES URINAL AT BEDSIDE. EXCORIATED BUTTOCKS. CONT. TO TURN EVERY 2 HOURS. LS DIMINISHED. HR SR ON MONITOR. WILL CONT. TO MONITOR. BED IN LOW POSITION, CALL LIGHT WITHIN REACH, BED ALARM ON, WILL PROCEED WITH CURRENT PLAN OF CARE AT THIS TIME.
[2017-08-18 03:14] LABS: GLYCOHEMOGLOBIN (HGB A1C) 7.6 % (4.8-5.6)
[2017-08-18 04:00] VITALS: BP 120/61
[2017-08-18 05:36] LABS: ANION GAP < 0 mmol/L (7-16); BUN 26 mg/dL (7-18); CALCIUM 8.4 mg/dL (8.5-10.1); CHLORIDE 104 mmol/L (98-107); CO2 44 mmol/L (21-32); CREATININE 0.6 mg/dL (0.6-1.3); GLUCOSE 168 mg/dL (70-99); POTASSIUM 3.7 mmol/L (3.5-5.1); SODIUM 146 mmol/L (136-145)
[2017-08-18 05:37] LABS: HEMATOCRIT 26.6 % (42.0-52.0); MCH 28.7 pg (26.0-34.0); MCHC 33.5 g/dL (28.0-37.0); MCV 85.7 fL (80.0-100.0); MPV 9.2 fl. (7.2-11.1); NUCLEATED RBCS 0 /100WBC; PLATELET COUNT* 110 thou/uL (150-400); RDW-CV 14.7 % (10.5-14.5); WBC 7.2 thou/uL (4.0-11.0)
[2017-08-18 05:50] LABS: HEMOGLOBIN 8.9 gm/dL (14.0-18.0)
[2017-08-18 06:44] LABS: ABSOLUTE LYMPHOCYTES 0.6 thou/uL (0.8-5.3); ABSOLUTE MONOCYTES 0.1 thou/uL (0.0-1.2); ABSOLUTE NEUTROPHILS 6.6 thou/uL (1.6-8.1); PLATELET ESTIMATE ADEQUATE
[2017-08-18 08:00] VITALS: BP 134/62
--- NOTE | 2017-08-18 10:08 | NUR ---
INITIAL ASSESSMENT: Pt evaluated for d/c planning needs. Reviewed chart and spoke with nurse, physician, pt and liaison from [facility]. Pt was hospitalized at [facility] and went to [facility]. Pt was d/c home from [facility] on 08/11/17 and returned home alone with [facility]. [facility] 9 [facility]. Pt only has Medicare Part A. Spoke at length with pt and he is agreeable to referral being made to [facility]. Spoke with multimedia services coordinator at facility and faxed referral. Pt is living in a house that he is currently buying, but states he has no other assets. distribution coordinator at facility said she would consider pt coming to them with hospice and Medicaid pending. Will await return call from facility re: bed availability and acceptance.
[2017-08-18 11:30] VITALS: BP 105/51
[2017-08-18] MEDS ORDERED: AUGMENTIN 875-1 EACH PO (12:20)
[2017-08-18] MEDS ORDERED: PREDNISONE 10 M10 MG PO (12:22)
[2017-08-18] MEDS ORDERED: LEVEMIR SUBQ (12:25)
[2017-08-18 12:32] VITALS: BP 105/51
--- NOTE | 2017-08-18 13:09 | NUR ---
PT TO DISCHARGE TO [facility] TO TAKE PT NO CNCERNS AT THIS TIME PLAN TO GO BACK ON HOSPICE WELL
--- NOTE | 2017-08-20 09:31 | CON ---
[address] [address] CONSULTATION Name: ABDIAS PALUMBO Room: [address] IN M.R.#: [id number] Admission: 08/17/17 Attend Phys: Eric Charles MD Discharge: 08/18/17 Date of : 38 Report #: [id number] THIS REPORT FOR: //name// CC: Eric Charles [facility] unknown REASON FOR CONSULTATION: Vttux-fh-qvgpwes respiratory failure. HISTORY OF PRESENT ILLNESS: The patient is a 77-year-old male patient known to our service from frequent hospitalizations in the last 2 months. At baseline, he is on 5 liters oxygen, chronic respiratory failure. Also, he is on BiPAP at sleep at the facility he lives in. He came in yesterday with increasing shortness of breath. The patient told me that today, although he is feeling better on 5 liters oxygen, but yesterday all of a sudden he developed shortness of breath, wheezes and cough and that improved after he was placed on BiPAP. This morning, as mentioned, he was off BiPAP. He reported he had some wheezes and cough, mostly dry. He denied any chest pain or lower extremity edema. He denied any sick contact and he reported that he had been religiously using his BiPAP every time he sleeps. He denied any abdominal pain, dysuria, frequency, urgency and increase in the lower extremity edema. REVIEW OF SYSTEMS: Rest of the review of systems was negative, 12-system reviewed with the patient. PAST MEDICAL HISTORY: Chronic respiratory failure, on home oxygen 4-5 liters; COPD and supposed to be on BiPAP overnight. ALLERGIES: No known drug allergies. FAMILY HISTORY: Noncontributory, reviewed with the patient. SOCIAL HISTORY: Prior smoker, does not smoke any more. Does not abuse drugs. Lives at the nursing facility. MEDICATIONS: He is on budesonide, pravastatin, lorazepam, omeprazole, Lasix, azithromycin, Flonase, DuoNeb. PHYSICAL EXAMINATION: VITAL SIGNS: On examination, he is on 5 liters oxygen with saturation more than 90%, blood pressure 134/62, pulse rate of 94, afebrile. GENERAL APPEARANCE: Awake, alert and oriented, speaks in full sentences. HEENT: Head normocephalic, atraumatic. Pupils equal, reactive to light. Extraocular movements intact. External ear looks healthy and normal. Nasal passage is patent. NECK: Supple. No palpable lymph node, no palpable thyroid. Trachea central. CHEST: Diminished air movement bilaterally with prolonged expiratory phase, some occasionally end-[place]iratory [place] [address] CONSULTATION Name: MARIA ISABELINÉSABDIAS Garber Room: [address] IN .R.#: [id number] Admission: 08/17/17 Attend Phys: Eric Charles MD Discharge: 08/18/17 Date of : 38 Report #: [id number] HEART: S1, S2, no murmur. ABDOMEN: Benign, soft, lax, and nontender. LOWER EXTREMITIES: Trace edema, no calf tenderness. MUSCULOSKELETAL: Normal inspection. No deformities. LYMPHATICS: No palpable lymph node. PSYCHIATRIC: Mood and affect, quiet, calm. NEUROLOGIC: Moving 4 extremities spontaneously. No focal weakness. LABORATORY DATA: ABGs on BiPAP, 7.33/87/78. His white blood count 10.7, hemoglobin 11.5, platelets of 132. His influenza A and B screen negative. His creatinine is 0.6, potassium 3.7 and sodium 146. CURRENT MEDICATIONS: Include levofloxacin, glipizide, pantoprazole, steroids, scheduled nebulization treatments in addition to budesonide. His chest x-ray did not show acute pathology and he had a CT of the chest that did not show evidence of pulmonary embolus or acute infiltrate, but demonstrates a severe emphysema. IMPRESSION: 1. Nratp-yq-omnerkh hypoxic and hypercapnic respiratory failure. 2. Chronic obstructive pulmonary disease exacerbation. PLAN: At this point, I would continue the current care with the steroids, antibiotics, scheduled nebulization treatment. The patient denied any history of dysphagia; however, with the sudden change in his symptoms over a short period of time, I would like to make sure he does not aspirate. We will consult speech pathology for further evaluation. Meanwhile, continue the current therapy. I would keep on BiPAP every time he sleeps. Thank you for the consult. We will follow along with you. <ELECTRONICALLY SIGNED> By: Celi Ruvalcaba MD 08/20/17 0931 1016 [id number] Ruvalcaba MD /ally
== END 2017-08-18 13:30 | DRG 189 ==
LOC: M.ERS 13:03 → M.TBA-ER 14:50 → M.2W 14:50
PROVIDERS: Personal Emergency Response Attendant; ADMIT Internal Medicine
PROC: 5A09357 Assistance with Respiratory Ventilation, Less than 24 Consecutive Hours, Continuous Positive Airway Pressure (ICD-10-PCS; principal; 2017-08-17)
DX: J96.21 Acute and chronic respiratory failure with hypoxia (principal); E11.00 Type 2 diabetes mellitus with hyperosmolarity without nonketotic hyperglycemic-hyperosmolar coma (NKHHC); R65.11 Systemic inflammatory response syndrome (SIRS) of non-infectious origin with acute organ dysfunction; J44.1 Chronic obstructive pulmonary disease with (acute) exacerbation; J96.22 Acute and chronic respiratory failure with hypercapnia; F32.9 Major depressive disorder, single episode, unspecified; F41.9 Anxiety disorder, unspecified; R00.0 Tachycardia, unspecified; I27.81 Cor pulmonale (chronic); F43.10 Post-traumatic stress disorder, unspecified; I10 Essential (primary) hypertension; K21.9 Gastro-esophageal reflux disease without esophagitis; E78.5 Hyperlipidemia, unspecified; Z90.49 Acquired absence of other specified parts of digestive tract; Z88.8 Allergy status to other drugs, medicaments and biological substances; Z87.891 Personal history of nicotine dependence; Z82.49 Family history of ischemic heart disease and other diseases of the circulatory system; Z79.899 Other long term (current) drug therapy; Z79.82 Long term (current) use of aspirin